=== PATIENT | female | born 1965 | race Caucasian/White ===

== ENCOUNTER → 2018-05-18 | Outpatient (CLI) | payer BC | LOC: MC.RAD 13:20 | DX: Z12.31 Encounter for screening mammogram for malignant neoplasm of breast (principal); N63.21 Unspecified lump in the left breast, upper outer quadrant ==

== ENCOUNTER → 2018-05-24 | Outpatient (CLI) | payer BC | LOC: MC.RAD 13:30 | DX: N63.21 Unspecified lump in the left breast, upper outer quadrant (principal) | CPT/HCPCS: G0279 ==

== ENCOUNTER → 2018-05-30 | Outpatient (CLI) | payer BC | LOC: MC.RAD 07:55 | DX: N60.02 Solitary cyst of left breast (principal) ==

== ENCOUNTER → 2018-10-12 | Outpatient (CLI) | payer BC | LOC: MC.RAD 11:00 | DX: N63.21 Unspecified lump in the left breast, upper outer quadrant (principal) | CPT/HCPCS: G0279 ==